=== PATIENT | female | born 1930 | race Caucasian/White ===

== ENCOUNTER 2016-09-28 20:11 | Inpatient (IN) | payer MEDICARE, BC ==
[2016-09-28 20:00] VITALS: BP 108/56; PULSE 60; RESP 18; TEMP 97.6; O2SAT 95
[~2016-09-28 20:11] MED LIST: ACET325T PO; ASPI-110 PO; FURO20TA PO; POTA20TA5 PO; ZOCO20TA PO
[2016-09-28] MEDS ORDERED: ACETAMINOPHEN 325 MG TAB PO PRN (21:45)
--- NOTE | 2016-09-28 22:29 | HHI.HP ---
HPI Service [facility] Primary Care Physician Non-Staff Admission Diagnosis Diagnoses: Chief Complaint: Altered mental status Travel History International Travel<30 Days: No Contact w/Intl Traveler <30 Da: No Traveled to Known Affected Are: No History of Present Illness This is an 86-year-old female with history of atrial fibrillation on anticoagulation, coronary artery disease status post coronary stenting, diabetes mellitus, hypertension, aortic stenosis, dyslipidemia admitted to [facility] for elective TAVR for aortic stenosis. 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 She was then discharged to [place] for comprehensive rehabilitation. She has been doing well with therapy until yesterday when she started becoming confused. CT scan of the head was done which showed subcortical hemorrhage right parietal lobe hence patient was transferred to the hospital. Mental status improved throughout the day. No new deficits. Review of Systems ROS Limitations: Other (All other pertinent systems were reviewed and are negative.) Past Family Social History Past Medical History A. fib CVA DM [place] HTN Arthritis Past Surgical History Joint replacement Hysterectomy in Stent placement Bladder repair S/P TAVR Reported Medications Acetaminophen 325 Mg Tab 650 Mg PO Q4H PRN Zocor (Simvastatin) 20 Mg Tab 20 Mg PO HS Allergies: Coded Allergies: Egg Allergy (Verified Allergy, Mild, Nausea/Vomiting, 10/18/06) Sulfa (Verified Allergy, Mild, 10/18/06) Family History Prominent heart problems in the family Social History Former smoker 10-12 cans of beer per week Denies illicit drug use Physical Exam Vital Signs Blood pressure around 7 PM is systolic 94/54, heart rate of 66, temperature 97.3. Physical Exam GENERAL: Not in distress. SKIN: Ecchymotic left upper extremity and small wound left knee. Cool and dry. HEAD: Atraumatic. Normocephalic. No temporal or scalp tenderness. EYES: Extraocular motions intact. No scleral icterus. No injection or drainage. ENT: Nose without bleeding. Throat without erythema, tonsillar hypertrophy or exudate. NECK: Trachea midline. No JVD or lymphadenopathy. Supple, nontender, no meningeal signs. CARDIOVASCULAR: Regular rate and rhythm systolic murmurs, no gallops, or rubs. Pacemaker site clear of infection. Steri-Strips in place RESPIRATORY: Clear to auscultation. Breath sounds equal bilaterally. No wheezes , rales, or rhonchi. GASTROINTESTINAL: Abdomen soft, non-tender, nondistended. Bowel sounds active 4. MUSCULOSKELETAL: Extremities without clubbing, cyanosis, or edema. Left upper extremity flaccid. Left lower extremity minimal movement 2/5 strength intact sensation, right upper and lower extremity 5 over 5 compared to the left. NEUROLOGICAL: Awake and alert. Oriented to person, place, and month. Laboratory WBC 10.6/hemoglobin 14.2/platelets 240 Sodium 134/potassium 4.1/creatinine 0.[address] scan of the head showed right mid parietal lobe subcortical hemorrhage and subacute infarct. Assessment and Plan Assessment and Plan Patient is a 86 year old female status post TAVR at [facility] postsurgically complicated with heart block, right MCA infarct, with left-sided residual, discharged to [place] for rehabilitation but developed altered mental status, workup revealed subcortical right mid parietal hemorrhage now readmitted to the hospital. Right MCA embolic infarct now with right subcortical mid parietal hemorrhage- CT scan of the brain personally reviewed showed old subacute infarct with new subcortical hemorrhage right mid parietal area. Hold aspirin and Coumadin for now, patient needs to be restarted anticoagulation given recent TAVR. Start lisinopril. Consult neurology, keep blood pressure less than 140. Stop statin based on SPARC trial for now. Neuro checks closely, vital signs, restart therapy if okay with neurology Altered mental status-likely secondary to new CVA/hemorrhage. Monitor. Coronary artery disease-aspirin on hold. Hypertension-hydralazine as needed, lisinopril low-dose for now. Congestive heart failure-not in exacerbation, continue Lasix, monitor BMP Atrial fibrillation-hold aspirin and Coumadin. Continue digoxin, status post pacemaker placement DM 2 -hold glipizide, sliding scale insulin for now. DVT prophylaxis: SCDs Physician Certification 2 Midnight Certification Type: Admission for Inpatient Services Order for Inpatient Services The services are ordered in accordance with Medicare regulations or non- Medicare payer requirements, as applicable. In the case of services not specified as inpatient-only, they are appropriately provided as inpatient services in accordance with the 2-midnight benchmark. Estimated LOS (days): 4 days is the estimated time the patient will need to remain in the hospital, assuming treatment plan goals are met and no additional complications. Post-Hospital Plan: Inpatient Rehab Sunil Palmer MD Sep 28, 2016 22:29
[2016-09-28] MEDS ORDERED: hydrALAZINE HCL 20 MG/ML VIAL IV PUSH PRN (22:30)
[2016-09-28] MEDS ORDERED: ENALAPRILAT 1.25 MG/ML VIAL IV PUSH PRN (22:30)
[2016-09-28] MEDS ORDERED: GLUCAGON 1 MG/ML VIAL OTHER PRN (22:45)
[2016-09-28] MEDS ORDERED: DEXTROSE 50% IN WATER 50 ML VIAL(D50) IV PUSH PRN (22:45)
[2016-09-29] VITALS (10 sets, daily range): BP systolic 92–128; BP diastolic 53–84; PULSE 59–61; RESP 17–20; TEMP 95.5–97.5; O2SAT 95–98
[2016-09-29] MEDS: INSULIN ASPART SUPPLEMENTAL SCALE SQ SCH ×4 (06:11→21:00)
[2016-09-29 06:56] LABS: AUTOMATED NEUTROPHIL # 7.4 TH/MM3 (1.8-7.7); BASOPHIL # 0.1 TH/MM3 (0-0.2); BASOPHIL % 0.7 % (0.0-2.0); EOSINOPHIL # 0.4 TH/MM3 (0-0.4); EOSINOPHIL % 4.1 % (0.0-4.0); HEMATOCRIT 39.7 % (35.0-46.0); HEMO FLAGS DIFF FINAL; LYMPH % 11.3 % (9.0-44.0); LYMPHOCYTE # 1.1 TH/MM3 (1.0-4.8); MEAN CELL VOLUME 92.7 FL (80.0-100.0); MEAN CORPUSCULAR HEMOGLOBIN 32.2 PG (27.0-34.0); MEAN CORPUSCULAR HGB CONC 34.8 % (32.0-36.0); NEUT % 76.9 % (16.0-70.0); PLATELET COUNT 226 TH/MM3 (150-450); RED BLOOD COUNT 4.29 MIL/MM3 (4.00-5.30); RED CELL DISTRIBUTION WIDTH 13.8 % (11.6-17.2); WHITE BLOOD COUNT 9.6 TH/MM3 (4.0-11.0)
[2016-09-29 07:21] LABS: BICARBONATE 31.9 MEQ/L (21.0-32.0); POTASSIUM 4.4 MEQ/L (3.5-5.1)
[2016-09-29] MEDS ORDERED: glipiZIDE 5 MG TAB PO SCH (08:00)
--- NOTE | 2016-09-29 08:47 | HHI.PR ---
Subjective Remarks Follow-up for subcortical hemorrhage Mild headache right side, throbbing, no nausea or vomiting. No new neurologic deficits or worsening. Speech is stable and fluent. No nausea or vomiting. Blood pressure soft. Objective Vitals Vital Signs Date Time Temp Pulse Resp B/P Pulse Ox O2 Delivery O2 Flow Rate FiO2 09/29/16 08:13 95.5 60 17 92/53 98 09/29/16 04:00 97.3 59 18 108/84 95 09/29/16 03:48 60 09/29/16 01:00 97.5 60 18 108/62 95 09/28/16 20:00 97.6 60 18 108/56 95 Result Diagram: 09/29/16 0613 09/29/16612 Objective Remarks Not in distress, well-nourished, looks stated age, appears weak. PERRL, pink conjunctiva without injection, anicteric Nose without bleeding, airway patent, oropharynx clear Supple neck, no masses or thyromegaly, trachea midline Normal rate and regular rhythm Clear to auscultation and symmetric bilaterally, poor effort. Normal bowel sounds, soft, non-tender, nondistended, no guarding. Extremities without clubbing, cyanosis, or edema. SCDs in place. No rash of generalized distribution. Skin is warm and dry. AAO oriented to place, person, month and year, she thinks it's September 28, over 5 right upper and lower extremities, flaccid left upper extremity and 2 over 5 left lower extremities. A/P Assessment and Plan Patient is a 86 year old female status post TAVR at [facility] postsurgically complicated with heart block, right MCA infarct, with left-sided residual, discharged to [place] for rehabilitation but developed altered mental status, workup revealed subcortical right mid parietal hemorrhage now readmitted to the hospital. Right MCA embolic infarct now with right subcortical mid parietal hemorrhage- CT scan of the brain personally reviewed showed old subacute infarct with new subcortical hemorrhage right mid parietal area. Continue to Hold aspirin and Coumadin for now, patient needs to be restarted on anticoagulation given recent TAVR. Decrease lisinopril. Blood pressure soft. Stop statin based on SPARC trial for now. Awaiting neurology input, discussed with Dr. Calles from neurology , he agreed with stopping antiplatelets and Coumadin, at least for 1 week then revisit on 10/06/15. Neuro checks closely, vital signs, restart therapy if okay with neurology Altered mental status-likely secondary to new CVA/hemorrhage. Monitor. Resolved. Coronary artery disease-aspirin on hold as above Hypertension-hydralazine as needed, lisinopril low-dose for now. Hold Lasix if blood pressures too soft. Congestive heart failure-not in exacerbation, continue Lasix, monitor BMP Atrial fibrillation-hold aspirin and Coumadin. Continue digoxin, status post pacemaker placement, check digoxin levels. DM 2 -hold glipizide, sliding scale insulin for now. DVT prophylaxis: Sunil Streeter MD Sep 29, 2016 08:47
[2016-09-29] MEDS: FUROSEMIDE 40 MG TAB PO SCH (09:00)
[2016-09-29] MEDS: POTASSIUM CHLORIDE 20 MEQ CONTROLLED RELEASE TAB PO SCH (09:29)
[2016-09-29] MEDS: DIGOXIN 0.125 MG TAB PO SCH (09:30)
[2016-09-29] MEDS ORDERED: PRIN20TA2 PO (18:20)
[2016-09-29] MEDS ORDERED: LANO0.1212 PO (18:20)
[2016-09-29] MEDS ORDERED: GLIP5 PO (18:20)
[2016-09-29] MEDS ORDERED: FURO1TAB60 PO (18:21)
[2016-09-29] MEDS ORDERED: LISINOPRIL 20 MG TAB PO SCH (21:00)
[2016-09-29] MEDS: LISINOPRIL 10 MG TAB PO SCH (21:48)
[2016-09-30] VITALS (10 sets, daily range): BP systolic 114–153; BP diastolic 56–69; PULSE 60–63; RESP 16–20; TEMP 95.3–97; O2SAT 95–98
[2016-09-30] MEDS: INSULIN ASPART SUPPLEMENTAL SCALE SQ SCH ×4 (05:25→21:00)
--- NOTE | 2016-09-30 09:08 | MB ---
cc: ROBYN CALLES MD DATE OF CONSULTATION: 09/30/2016 REASON FOR CONSULTATION: Altered mental status. HISTORY OF PRESENT ILLNESS This is an 86-year-old female with history of atrial fibrillation on anticoagulation, Coumadin, coronary artery disease status post coronary stenting, diabetes mellitus, hypertension, aortic stenosis, dyslipidemia, admitted to [facility] for elective TAVR for aortic stenosis. 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 During which aspirin was started then discharged to [place] for rehabilitation and anticoagulation and of the CT scan was stable, and anticoagulation was restarted. However, a few days later the patient started to become confused and a repeat head CT scan showed subcortical hemorrhage within the right parietal lobe and the patient was transferred to the hospital. REVIEW OF SYSTEMS A 12-point review of systems is negative except for what is stated in the history of present illness. PAST MEDICAL HISTORY 1. Atrial fibrillation, stroke with residual hepatic weakness. 2. Diabetes mellitus. 3. Myocardial infarction 4. Hypertension 5. Arthritis. PAST SURGICAL HISTORY 1. Joint replacement 2. Hysterectomy. 3. Stent Replacement. 4. Bladder repair. 5. Status post TAVR. ALLERGIES EGGS SULFA FAMILY HISTORY Coronary artery disease. heart disorders in the family index. SOCIAL HISTORY Former smoker, 10-12 cans per week and denies illicit drug use. PHYSICAL EXAMINATION: IN GENERAL: The patient is awake, alert and not in apparent distress. HEAD, EYES, EARS, NOSE, AND THROAT: Atraumatic, normocephalic. Intact hearing. Intact vision. NECK: Trachea in the midline, no carotid bruits. Supple. CARDIOVASCULAR SYSTEM: Regular rate and rhythm with systolic murmur. RESPIRATORY: Clear to auscultation. Normal breath sounds. NEUROLOGIC: Awake, alert, oriented to person, place and time. Intact speech, intact speech content. Cranial nerves II-XII are grossly intact. Left sided hemiparesis. Intact sensation on the right side sensation bilaterally. Reflexes 2+ bilateral symmetrical. Plantar bilaterally downgoing. Cerebellar intact on the right side and unable to perform the left side because of weakness. IMAGING STUDIES - Head CT scan with subcortical hemorrhage, right parietal lobe and subacute infarct. DIAGNOSTIC IMPRESSION MRI with transformation of an ischemic stroke right MCA infarct and left sided weakness. PLAN: Hold anticoagulation and antiplatelets. The patient still needs to be restarted on anticoagulation given the recent TAVR. Maintain blood pressure less than 140/90. Elevate the head of bed. 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 GI prophylaxis. PT/OT recommendations are appreciated. Thank you for the opportunity to participate in the care of your patient. Robyn Calles MD [facility]/saleem /12:10 AM /8:41 AM KATHLEEN
[2016-09-30] MEDS: DIGOXIN 0.125 MG TAB PO SCH (09:32)
[2016-09-30] MEDS: POTASSIUM CHLORIDE 20 MEQ CONTROLLED RELEASE TAB PO SCH (09:32)
[2016-09-30] MEDS: FUROSEMIDE 40 MG TAB PO SCH (09:33)
[2016-09-30 09:37] LABS: BICARBONATE 25.5 MEQ/L (21.0-32.0); DIGOXIN 1.6 NG/ML (0.8-2.0); POTASSIUM 4.5 MEQ/L (3.5-5.1)
--- NOTE | 2016-09-30 09:37 | HHI.PR ---
Subjective Remarks Follow-up for hemorrhagic CVA Still has a mild headache, right frontal, throbbing, no nausea or vomiting. No new neurologic deficits, stable. No shortness of breath. Discussed with patient's son Yoana Objective Vitals Vital Signs Date Time Temp Pulse Resp B/P Pulse Ox O2 Delivery O2 Flow Rate FiO2 09/30/16 04:00 96.3 61 20 118/56 98 09/30/16 00:00 96.6 63 20 118/57 98 09/29/16 20:00 96.0 61 20 114/54 97 09/29/16 16:00 96.2 60 18 124/59 96 09/29/16 13:30 96 21 09/29/16 12:10 96.0 60 18 128/61 98 09/29/16 09:35 98 21 I/O 09/29/16 09/29/16 09/29/16 09/30/16 09/30/16 09/30/16 06:59 14:59 22:59 06:59 14:59 22:59 Intake Total 240 ml 120 ml 60 ml Balance 240 ml 120 ml 60 ml Intake Oral 240 ml 120 ml 60 ml # Voids 1 2 2 3 # Bowel Movements 0 2 0 Result Diagram: 09/29/1613 09/29/16612 Objective Remarks Not in distress, well-nourished, looks stated age, appears weak. PERRL, pink conjunctiva without injection, anicteric Nose without bleeding Supple neck, no masses or thyromegaly, trachea midline Normal rate and regular rhythm Clear to auscultation and symmetric bilaterally, poor effort. Normal bowel sounds, soft, non-tender, nondistended, no guarding. Extremities without clubbing, cyanosis, or edema. SCDs in place. No rash of generalized distribution. Skin is warm and dry. AAO oriented to place, person, time , speech is fluent, 5 over 5 right upper and lower extremities, flaccid left upper extremity and 2 over 5 left lower extremities. A/P Assessment and Plan Patient is a 86 year old female status post TAVR at [facility] postsurgically complicated with heart block, right MCA infarct, with left-sided residual, discharged to [place] for rehabilitation but developed altered mental status, workup revealed subcortical right mid parietal hemorrhage now readmitted to the hospital. Right MCA embolic infarct now with right subcortical mid parietal hemorrhage- CT scan of the brain personally reviewed showed old subacute infarct with new subcortical hemorrhage right mid parietal area. Continue to Hold aspirin and Coumadin for 1 week at least (10/06/16), patient needs to be restarted on anticoagulation given recent TAVR. Decrease lisinopril. Blood pressure soft. Stop statin based on SPARC trial for now. Awaiting neurology input, discussed with Dr. Calles from neurology 09/29, he agreed with stopping antiplatelets and Coumadin. Neuro checks closely, vital signs, restart therapy if okay with neurology Altered mental status-likely secondary to new CVA/hemorrhage. Monitor. Resolved. Coronary artery disease-aspirin on hold as above Hypertension-hydralazine as needed, lisinopril low-dose for now. Hold Lasix if blood pressures too soft. Congestive heart failure-not in exacerbation, continue Lasix, monitor BMP Atrial fibrillation-hold aspirin and Coumadin. Continue digoxin, status post pacemaker placement, check digoxin levels. DM 2 -hold glipizide, sliding scale insulin for now. DVT prophylaxis: SCDs Discussed with patient's son Yoana I spent 35 minutes [id number] with the patient or on the avery discussing the patient's disposition, prognosis and plan of care with her son Yoana. Over half of time spent was devoted to counseling the patient regarding placement, treatment plan and coordinating care with caregivers. Discharge Planning d/c once cleared by neurology, likely Sunday Sunil Palmer MD Sep 30, 2016 09:37
[2016-09-30] MEDS: LISINOPRIL 10 MG TAB PO SCH (21:30)
[2016-10-01] VITALS (10 sets, daily range): BP systolic 111–150; BP diastolic 58–69; PULSE 59–115; RESP 18–20; TEMP 95.7–98.3; O2SAT 95–97
[2016-10-01] MEDS: INSULIN ASPART SUPPLEMENTAL SCALE SQ SCH ×4 (05:41→21:00)
[2016-10-01] MEDS: DIGOXIN 0.125 MG TAB PO SCH (09:16)
[2016-10-01] MEDS: POTASSIUM CHLORIDE 20 MEQ CONTROLLED RELEASE TAB PO SCH (09:16)
[2016-10-01] MEDS: FUROSEMIDE 40 MG TAB PO SCH (09:16)
--- NOTE | 2016-10-01 10:23 | HHI.PR ---
Subjective Remarks Follow-up for hemorrhagic stroke transformation Still with mild right sided headache, throbbing, blood pressure controlled, no nausea or vomiting. Denies any chest pain or shortness of breath. No neurologic deficits. Objective Vitals Vital Signs Date Time Temp Pulse Resp B/P Pulse Ox O2 Delivery O2 Flow Rate FiO2 10/01/16 08:50 96 21 10/01/16 08:28 95.7 59 18 128/58 95 10/01/16 06:45 98.3 68 19 148/68 97 10/01/16 04:23 95 21 10/01/16 00:45 98.0 64 20 150/65 96 09/30/16 20:50 97.0 60 19 153/69 95 09/30/16 20:00 60 09/30/16 18:00 96 21 09/30/16 16:00 95.5 60 18 114/57 96 09/30/16 12:00 96.5 60 18 117/67 97 09/30/16 11:35 98 21 I/O 09/30/16 09/30/16 09/30/16 10/01/16 10/01/16 10/01/16 07:00 15:00 23:00 07:00 15:00 23:00 Intake Total 60 ml 360 ml 100 ml Balance 60 ml 360 ml 100 ml Intake Oral 60 ml 360 ml 100 ml # Voids 3 2 2 3 # Bowel Movements 0 2 1 Result Diagram: 09/29/16 0613 09/30/16 0820 Objective Remarks Not in distress, well-nourished, looks stated age, appears weak. PERRL, pink conjunctiva without injection, anicteric Nose without bleeding Supple neck, no masses or thyromegaly, trachea midline Normal rate and regular rhythm Clear to auscultation and symmetric bilaterally, poor effort. Normal bowel sounds, soft, non-tender, nondistended, no guarding. Extremities without clubbing, cyanosis, or edema. SCDs in place. No rash of generalized distribution. Skin is warm and dry. AAO oriented to place, person, time , speech is fluent, 5 over 5 right upper and lower extremities, flaccid left upper extremity and 2 over 5 left lower extremities. A/P Assessment and Plan Patient is a 86 year old female status post TAVR at [facility] postsurgically complicated with heart block, right MCA infarct, with left-sided residual, discharged to [place] for rehabilitation but developed altered mental status, workup revealed subcortical right mid parietal hemorrhage now readmitted to the hospital. Right MCA embolic infarct now with right subcortical mid parietal hemorrhage- CT scan of the brain personally reviewed showed old subacute infarct with new subcortical hemorrhage right mid parietal area. Continue to Hold aspirin and Coumadin for 1 week at least (10/06/16), patient needs to be restarted on anticoagulation given recent TAVR. Decrease lisinopril. Stop statin based on SPARC trial for now. Awaiting neurology input, discussed with Dr. Calles from neurology 09/29, he agreed with stopping antiplatelets and Coumadin. Stable neurologically, start physical therapy. Altered mental status-likely secondary to new CVA/hemorrhage. Monitor. Resolved. Coronary artery disease-aspirin on hold as above Hypertension-hydralazine as needed, lisinopril low-dose for now. Hold Lasix if blood pressures too soft. Congestive heart failure-not in exacerbation, continue Lasix, monitor BMP Atrial fibrillation-hold aspirin and Coumadin. Continue digoxin, status post pacemaker placement, digoxin levels are good. DM 2 -hold glipizide, sliding scale insulin for now. DVT prophylaxis: SCDs Discussed with patient's son Yoana Discharge Planning d/c once cleared by neurology, likely Sunday Sunil Palmer MD Oct 01, 2016 10:23
[2016-10-01] MEDS: LISINOPRIL 10 MG TAB PO SCH (23:02)
[2016-10-02] VITALS: BP 148/76; PULSE 71; RESP 19; TEMP 97.9; O2SAT 95
[2016-10-02 05:45] VITALS: BP 126/60; PULSE 62; RESP 18; TEMP 98; O2SAT 95
[2016-10-02] MEDS: INSULIN ASPART SUPPLEMENTAL SCALE SQ SCH (06:21)
[2016-10-02 08:52] VITALS: BP 149/68; PULSE 60; RESP 16; TEMP 96.5; O2SAT 97
[2016-10-02] MEDS: FUROSEMIDE 40 MG TAB PO SCH (08:53)
[2016-10-02] MEDS: POTASSIUM CHLORIDE 20 MEQ CONTROLLED RELEASE TAB PO SCH (08:53)
[2016-10-02] MEDS: DIGOXIN 0.125 MG TAB PO SCH (08:53)
--- NOTE | 2016-10-02 09:10 | HHI.DS ---
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 She was then discharged to [place] for comprehensive rehabilitation. She has been doing well with therapy until yesterday when she started becoming confused. CT scan of the head was done which showed subcortical hemorrhage right parietal lobe hence patient was transferred to the hospital. Mental status improved throughout the day. No new deficits. CBC/BMP: 09/29/16 0613 09/30/16 0820 Significant Findings Laboratory Tests Test 09/30/16 08:20 Sodium Level 134 MEQ/L (136-145) Chloride Level 97 MEQ/L (98-107) Blood Urea Nitrogen 28 MG/DL (7-18) Estimat Glomerular Filtration 61 ML/MIN (>89) Rate PE at Discharge Not in distress, well-nourished, looks stated age, appears weak. PERRL, pink conjunctiva without injection, anicteric Nose without bleeding Supple neck, no masses or thyromegaly, trachea midline Normal rate and regular rhythm Clear to auscultation and symmetric bilaterally, poor effort. Normal bowel sounds, soft, non-tender, nondistended, no guarding. Extremities without clubbing, cyanosis, or edema. SCDs in place. No rash of generalized distribution. Skin is warm and dry. AAO oriented to place, person, time , speech is fluent, 5 over 5 right upper and lower extremities, flaccid left upper extremity and 2 over 5 left lower extremities. Pt update on day of discharge No overnight events, no new neurologic deficits. Still has a mild throbbing headache on the right but stable. No nausea or vomiting. Cleared by neurology for discharge/transfer to [place] rehabilitation. Hospital Course Patient is a 86 year old female status post TAVR at [facility] postsurgically complicated with heart block, right MCA infarct, with left-sided residual, discharged to [place] for rehabilitation but developed altered mental status, workup revealed subcortical right mid parietal hemorrhage and readmitted to the hospital. CT scan of the brain showed old subacute infarct with new subcortical hemorrhage right mid parietal area. Patient's mental status improved. Aspirin and Coumadin were held. Neurology was consulted. Statin was also stopped. Discussed with Dr. Calles from neurology 09/29, he agreed with stopping antiplatelets and Coumadin. Jon Lees is aware about the plan. Anticoagulation and antiplatelets will be stopped for a week, can restart aspirin on 10/06/16 if patient's neurological status remains stable. The plan is also to restart Coumadin after 2 weeks, that is on 10/12/16 if neurological status remained stable. Patient will be transferred [facility], cleared by neurology, follow up with Dr. Calles in 5 days Pt Condition on Discharge: Good Discharge Disposition: Rehab Inpatient Discharge Time: > 30 minutes Discharge Instructions DIET: Follow Instructions for: Heart Healthy Diet Speech Therapy-Diet Recommends: Pureed, [place] Thickened Liquids Activities you can perform: Regular-No Restrictions Follow up Referrals: Neurology - 10/06/16 Continued Medications: Acetaminophen (Acetaminophen) 325 Mg Tab 650 MG PO Q4H PRN Fever #0 TAB Digoxin (Lanoxin) 0.125 Mg Tab 0.125 MG PO DAILY Regulate Heart Beat #30 Ref 0 TAB Furosemide (Lasix) 40 Mg Tab 40 MG PO DAILY #30 Ref 0 TAB Glipizide (Glucotrol) 5 Mg Tab 2.5 MG PO DAILYAC Take 30 minutes before a meal Blood Sugar Management #60 Ref 0 TAB Lisinopril (Prinivil) 20 Mg Tab 20 MG PO HS Blood Pressure Management #30 Ref 0 TAB Potassium Chloride Microencaps (Potassium Chloride Microencaps) 20 Meq Tab 20 MEQ PO DAILY #30 TAB Simvastatin (Zocor) 20 Mg Tab 20 MG PO HS Cholesterol Management #30 Ref 0 TAB Sunil Palmer MD Oct 02, 2016 09:10
[2016-10-02 11:35] VITALS: BP 122/60; PULSE 61; RESP 16; TEMP 96.2; O2SAT 94
== END 2016-10-02 12:40 | DRG 65 ==
LOC: N05A 20:47
PROVIDERS: ADMIT Hospitalist; ATTEND Hospitalist
DX: I61.0 Nontraumatic intracerebral hemorrhage in hemisphere, subcortical (principal); I44.2 Atrioventricular block, complete; I48.91 Unspecified atrial fibrillation; E11.9 Type 2 diabetes mellitus without complications; I35.0 Nonrheumatic aortic (valve) stenosis; I10 Essential (primary) hypertension; E78.5 Hyperlipidemia, unspecified; I25.10 Atherosclerotic heart disease of native coronary artery without angina pectoris; I25.2 Old myocardial infarction; M19.90 Unspecified osteoarthritis, unspecified site; Z79.01 Long term (current) use of anticoagulants; Z86.73 Personal history of transient ischemic attack (TIA), and cerebral infarction without residual deficits; Z87.891 Personal history of nicotine dependence; Z95.0 Presence of cardiac pacemaker; Z95.2 Presence of prosthetic heart valve; Z95.5 Presence of coronary angioplasty implant and graft
CPT/HCPCS: 80048; 80162; 82948; 85025; J1815